=== PATIENT | female | born 1970 | race African-American/Black ===

== ENCOUNTER 2017-02-19 19:30 | Emergency (ER) | payer OTHER ==
--- NOTE | 2017-02-19 19:41 | PDOC ---
Rapid Medical Evaluation Chief Complaint: Nausea/Vomiting Time Seen by Provider: 02/19/17 19:41 Medical Evaluation: Allergies Allergy/AdvReac Type Severity Reaction Status Date / Time No Known Allergies Allergy Verified 11/28/11 12:35 Pt presents with complaint of : Vomiting x 6 days, epigastric tenderness. Now with generalized numbness and tingling. s/p cholecystectomy 10 years ago. On brief exam:VSS, crying, + upper quadrant tenderness I have ordered the following: cbc, cmp, lipase, ua, ucx, urine Pt will go to the Emergency Dept for further workup 02/19/17 19:45
[2017-02-19 19:43] VITALS: TEMP 98.8; BMI 26.9
[2017-02-19 20:32] LABS: BASOPHIL 0.4 % (0-2.0); EOSINOPHIL 0.1 % (0-4.5); MCH 30.4 pg (25.7-33.7); MCHC 34.3 g/dl (32.0-36.0); MEAN CELL VOLUME 88.6 fl (80-96); MEAN PLT VOLUME 9.3 fl (7.5-11.1); NEUTROPHILS 61.1 % (42.8-82.8); PLATELET COUNT 276 K/MM3 (134-434); RDW 14.1 % (11.6-15.6); WHITE BLOOD COUNT 12.9 K/mm3 (4.0-10.0)
[2017-02-19 20:37] LABS: URINE APPEARANCE CLOUDY; URINE BILIRUBIN NEGATIVE (NEGATIVE); URINE BLOOD NEGATIVE (NEGATIVE); URINE COLOR AMBER; URINE GLUCOSE (UA) NEGATIVE (NEGATIVE); URINE KETONE 1+ (NEGATIVE); URINE NITRITE NEGATIVE (NEGATIVE); URINE UROBILINOGEN 4.0 E.U/dl mg/dL (0.2-1.0)
[2017-02-19 20:46] LABS: URINE PROTEIN 1+ (NEGATIVE)
[2017-02-19 20:51] LABS: URINE MUCUS MANY; URINE RBC 18 /hpf (0-3); URINE WBC 81 /hpf (3-5)
[2017-02-19 20:55] LABS: ALBUMIN 4.1 g/dl (3.4-5.0); ALK PHOS 67 U/L (45-117); ANION GAP 10 (8-16); BILIRUBIN,TOTAL 2.3 mg/dL (0.2-1.0); CALCIUM 9.7 mg/dL (8.5-10.1); CO2 33 mmol/L (21-32); CREATININE 1.1 mg/dL (0.55-1.02); GLUCOSE,RANDOM 112 mg/dL (74-106); SGOT/AST 15 U/L (15-37); SGPT/ALT 29 U/L (12-78)
[2017-02-19] MEDS ORDERED: MAG HYDROX/AL HYDROX/SIMETH 30 ML UNIT-DOSE CUP PO ONE (21:49)
[2017-02-19] MEDS ORDERED: ONDANSETRON 4 MG/2 ML VIAL IVPUSH ONE (21:49)
[2017-02-19] MEDS ORDERED: LEVOFLOXACIN 750 MG IVPB 750 MG/150 ML BAG IVPB ONE ×2 (21:50→22:12)
--- NOTE | 2017-02-19 21:52 | PDOC ---
History of Present Illness - History of Present Illness Initial Comments: 02/19/17 21:52 Ms. Au is a 46 yo female w/ no pmh who presents c/o a 6 day history of nausea with vomiting. She reports that she has not been able to keep food or water down over this time period and that her vomit has consisted of whatever she has eaten. She decided to present today because she was starting to feel light headed. Also, she reports tingling of her hands for the last day and current headache. The patient denies chest pain and shortness of breath. Denies fever, chills, diarrhea and constipation. Denies dysuria, frequency, urgency and hematuria. Allergies: NKDA <Tenzin Meyer - Last Filed: 02/20/17 00:04> <Edison Johnson - Last Filed: 02/20/17 01:00> - General Chief Complaint: Nausea/Vomiting Stated Complaint: STOMACH PAIN Time Seen by Provider: 02/19/17 19:41 Past History - Past Medical History Asthma: No Cancer: No COPD: No - Surgical History Abdominal Surgery: No Appendectomy: No Cardiac Surgery: No - Suicide/Smoking/Psychosocial Hx Smoking Status: No Smoking History: Current some day smoker Have you smoked in the past 12 months: No Number of Cigarettes Smoked Daily: 5 Information on smoking cessation initiated: No Hx Alcohol Use: No Drug/Substance Use Hx: No Substance Use Type: Marijuana <Tenzin Meyer - Last Filed: 02/20/17 00:04> <Edison Johnson - Last Filed: 02/20/17 01:00> - Past Medical History Allergies/Adverse Reactions: Allergies Allergy/AdvReac Type Severity Reaction Status Date / Time No Known Allergies Allergy Verified 11/28/11 12:35 Home Medications: Ambulatory Orders Levofloxacin [Levaquin] 750 mg PO DAILY #5 tab 02/20/17 Ondansetron [Zofran Odt -] 4 mg SL BID #10 od.tablet 02/20/17 Review of Systems - Review of Systems Comments:: 02/19/17 21:56 GENERAL/CONSTITUTIONAL: No fever or chills. No weakness. HEAD, EYES, EARS, NOSE AND THROAT: No change in vision. No ear pain or discharge. No sore throat. CARDIOVASCULAR: No chest pain or shortness of breath RESPIRATORY: No cough, wheezing, or hemoptysis. GASTROINTESTINAL: Nausea with vomiting as described. No diarrhea or constipation. GENITOURINARY: No dysuria, frequency, or change in urination. MUSCULOSKELETAL: +Flank pain on left SKIN: No rash NEUROLOGIC: +Current headache with new onset bilateral finger parasthesias. No vertigo, loss of consciousness, or change in strength/sensation. ENDOCRINE: No increased thirst. No abnormal weight change HEMATOLOGIC/LYMPHATIC: No anemia, easy bleeding, or history of blood clots. ALLERGIC/IMMUNOLOGIC: No hives or skin allergy. <Tenzin Meyer - Last Filed: 02/20/17 00:04> *Physical Exam - Vital Signs Last Vital Signs Temp Pulse Resp BP Pulse Ox 98.8 F 115 H 19 117/71 100 02/19/17 19:41 02/19/17 19:41 02/19/17 19:41 02/19/17 19:41 02/19/17 19:41 - Physical Exam Comments: 02/19/17 22:02 GENERAL: Awake, alert, and fully oriented, in no acute distress HEAD: No signs of trauma, normocephalic, atraumatic EYES: PERRLA, EOMI, sclera anicteric, conjunctiva clear ENT: Auricles normal inspection, hearing grossly normal, nares patent, oropharynx clear without exudates. Moist mucosa NECK: Normal ROM, supple, no lymphadenopathy, JVD, or masses LUNGS: No distress, speaks full sentences, clear to auscultation bilaterally HEART: Regular rate and rhythm, normal S1 and S2, no murmurs, rubs or gallops, peripheral pulses normal and equal bilaterally. ABDOMEN: +Diffusely tender to palpation. CVA tenderness bilaterally. Soft, normoactive bowel sounds. No guarding, no rebound. No masses EXTREMITIES: Normal inspection, Normal range of motion, no edema. No clubbing or cyanosis. NEUROLOGICAL: Cranial nerves II through XII grossly intact. Normal speech, normal gait, no focal sensorimotor deficits SKIN: Warm, Dry, normal turgor, no rashes or lesions noted. <Tenzin Meyer - Last Filed: 02/20/17 00:04> - Vital Signs Last Vital Signs Temp Pulse Resp BP Pulse Ox 98.8 F 90 16 116/76 98 02/19/17 19:41 02/19/17 23:47 02/19/17 23:47 02/19/17 23:47 02/19/17 23:47 <Edison Johnson - Last Filed: 02/20/17 01:00> ED Treatment Course - LABORATORY CBC & Chemistry Diagram: 02/19/17 20:12 02/19/17 20:12 - ADDITIONAL ORDERS Additional order review: Laboratory Results 02/19/17 02/19/17 02/19/17 20:12 20:12 20:12 Sodium 131 L Potassium 3.0 L Chloride 88 L D Carbon Dioxide 33 H D Anion Gap 10 BUN 15 D Creatinine 1.1 H D Creat Clearance w eGFR 53.71 Random Glucose 112 H D Calcium 9.7 Total Bilirubin 2.3 H D AST 15 D ALT 29 Alkaline Phosphatase 67 D Total Protein 8.0 Albumin 4.1 Lipase 91 Urine Color Janice Urine Appearance Cloudy Urine pH 6.0 Ur Specific [place] 1.029 Urine Protein 1+ H Urine Glucose (UA) Negative Urine Ketones 1+ H Urine Blood Negative Urine Nitrite Negative Urine Bilirubin Negative Urine Urobilinogen 4.0 e.u/dl H Urine WBC (Auto) 81 Urine RBC (Auto) 18 Ur Epithelial Cells Moderate Urine Mucus Many Urine HCG, Qual Negative 02/19/17 20:12 RBC 5.54 H D MCV 88.6 MCHC 34.3 RDW 14.1 D MPV 9.3 Neutrophils % 61.1 Lymphocytes % 30.7 D Monocytes % 7.7 D Eosinophils % 0.1 Basophils % 0.4 <Tenzin Meyer - Last Filed: 02/20/17 00:04> - LABORATORY CBC & Chemistry Diagram: 02/19/17 20:12 02/19/17 20:12 - ADDITIONAL ORDERS Additional order review: Laboratory Results 02/19/17 02/19/17 02/19/17 20:12 20:12 20:12 Sodium 131 L Potassium 3.0 L Chloride 88 L D Carbon Dioxide 33 H D Anion Gap 10 BUN 15 D Creatinine 1.1 H D Creat Clearance w eGFR 53.71 Random Glucose 112 H D Calcium 9.7 Total Bilirubin 2.3 H D AST 15 D ALT 29 Alkaline Phosphatase 67 D Total Protein 8.0 Albumin 4.1 Lipase 91 Urine Color Janice Urine Appearance Cloudy Urine pH 6.0 Ur Specific [place] 1.029 Urine Protein 1+ H Urine Glucose (UA) Negative Urine Ketones 1+ H Urine Blood Negative Urine Nitrite Negative Urine Bilirubin Negative Urine Urobilinogen 4.0 e.u/dl H Urine WBC (Auto) 81 Urine RBC (Auto) 18 Ur Epithelial Cells Moderate Urine Mucus Many Urine HCG, Qual Negative 02/19/17 20:12 RBC 5.54 H D MCV 88.6 MCHC 34.3 RDW 14.1 D MPV 9.3 Neutrophils % 61.1 Lymphocytes % 30.7 D Monocytes % 7.7 D Eosinophils % 0.1 Basophils % 0.4 - Medications Given in the ED: ED Medications Discontinued Medications Generic Name Dose Route Start Last Admin Trade Name Freq PRN Reason Stop Dose Admin Al Hydroxide/Mg Hydroxide 30 ml 02/19/17 21:49 02/19/17 22:19 Mylanta Oral Suspension - PO 02/19/17 21:50 30 ml ONCE ONE Administration Levofloxacin 750 mg in 150 mls @ 100 mls/hr 02/19/17 21:50 02/19/17 22:39 Levaquin 750 Mg Premixed Ivpb - IVPB 02/19/17 23:19 100 mls/hr ONCE ONE Administration Magnesium Sulfate 2 gm 02/19/17 22:48 02/19/17 23:20 Magnesium Sulfate IVPB 02/19/17 22:49 2 gm ONCE ONE Administration Ondansetron HCl 4 mg 02/19/17 21:49 02/19/17 22:19 Zofran Injection IVPUSH 02/19/17 21:50 4 mg ONCE ONE Administration <Edison Johnson - Last Filed: 02/20/17 01:00> Medical Decision Making - Medical Decision Making 02/20/17 00:04 Patient experienced some relief from symptoms with 1L NS, zofran, and GI cocktail. After evaluation of electrolytes K noted to be low so 20 meq given. Magnesium given empirically after prolonged QT noted on EKG. Patient signed out to Dr. Johnson for further care. <Tenzin Meyer - Last Filed: 02/20/17 00:04> *DC/Admit/Observation/Transfer <Tenzin Meyer - Last Filed: 02/20/17 00:04> - Attestations Physician Attestion: 02/20/17 00:59 I, Dr. Edison Johnson MD, attest that this document has been prepared under my direction and personally reviewed by me in its entirety. I further attest, that it accurately reflects all work, treatment, procedures and medical decision -making performed by me. 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 Take the antibiotics as prescribed to treat your kidney infection. If you experience worsening pain, fevers, nausea, vomiting, or any other concerning symptoms, return to the ER immediately. Otherwise, follow up with your primary doctor within 1 week for a re-evaluation. - Post Discharge Activity Forms/Work/School Notes: Back to Work
[2017-02-19] MEDS ORDERED: FAMOTIDINE IV 20 MG/12 ML VIAL IVPUSH SCH (22:00)
[2017-02-19] MEDS ORDERED: SODIUM CHLORIDE 0.9%/KCL 20 MEQ/1,000 ML INFUS.BAG IV SCH (22:00)
[2017-02-19] MEDS ORDERED: ONDANSETRON 4 MG/2 ML VIAL ONE (22:12)
[2017-02-19] MEDS ORDERED: MAG HYDROX/AL HYDROX/SIMETH 30 ML UNIT-DOSE CUP ONE (22:12)
[2017-02-19] MEDS ORDERED: FAMOTIDINE 20 MG/50 ML IVPB 20 MG/50 ML MG IVPB ONE (22:13)
[2017-02-19] MEDS ORDERED: MAGNESIUM SULF 50% (8.12 MEQ/2 ML-1 GM VIAL) IVPB ONE (22:48)
[2017-02-19] MEDS ORDERED: MAGNESIUM SULF 50% (8.12 MEQ/2 ML-1 GM VIAL) ONE (22:58)
--- NOTE | 2017-02-19 23:38 | PDOC ---
Attending Attestation - Resident Resident Name: Tenzin Meyer - ED Attending Attestation I have performed the following: I have examined & evaluated the patient, The case was reviewed & discussed with the resident, I agree w/resident's findings & plan, Exceptions are as noted - HPI HPI: 02/19/17 23:33 46 F with no PMH presents to ER with 5 days of nausea and vomiting. Pt states that she has had difficulty keeping anything down due to severe nausea. Denies any focal abdominal pain but complains of diffuse cramps that started after vomiting. Denies F/C. Denies diarrhea. Pt has h/o UTI but denies any dysuria at this time. Pt denies surgical history. - Physicial Exam PE: 02/19/17 23:34 "GENERAL: Awake, alert, and fully oriented, in no acute distress HEAD: No signs of trauma EYES: PERRLA, EOMI, sclera anicteric, conjunctiva clear ENT: Auricles normal inspection, hearing grossly normal, nares patent, oropharynx clear without exudates. Moist mucosa NECK: Nontender, no stepoffs, Normal ROM, supple, no lymphadenopathy, JVD, or masses LUNGS: Breath sounds equal, clear to auscultation bilaterally. No wheezes, and no crackles HEART: Regular rate and rhythm, normal S1 and S2, no murmurs, rubs or gallops ABDOMEN: Soft, nontender, normoactive bowel sounds. No guarding, no rebound. No masses, Negative graves's EXTREMITIES: Normal range of motion, no edema. No clubbing or cyanosis. No cords, erythema, or tenderness NEUROLOGICAL: Cranial nerves II through XII intact. 5/5 strength and sensation in all extremities, Normal speech, normal gait SKIN: Warm, Dry, normal turgor, no rashes or lesions noted. " - Medical Decision Making 02/19/17 23:37 46 F with N/V. No focal abdominal tenderness on exam. + L CVAT, concerning for pyelo vs stone. - Labs, UA, UCx - IVF, zofran, pepcid - Reassess 02/19/17 23:38 EKG with QTC >600. Will hold on further antiemetics. Magnesium 2mg IV administered. 02/20/17 00:57 CBC,CMP WBC 12.9 K/mm3 (4.0-10.0) H D 02/19/17 20:12 RBC 5.54 M/mm3 (3.60-5.2) H D 02/19/17 20:12 Hgb 16.9 GM/dL (10.7-15.3) H D 02/19/17 20:12 Hct 49.1 % (32.4-45.2) H D 02/19/17 20:12 MCV 88.6 fl (80-96) 02/19/17 20:12 MCH 30.4 pg (25.7-33.7) 02/19/17 20:12 MCHC 34.3 g/dl (32.0-36.0) 02/19/17 20:12 RDW 14.1 % (11.6-15.6) D 02/19/17 20:12 Plt Count 276 K/MM3 (134-434) 02/19/17 20:12 MPV 9.3 fl (7.5-11.1) 02/19/17 20:12 Neutrophils % 61.1 % (42.8-82.8) 02/19/17 20:12 Lymphocytes % 30.7 % (8-40) D 02/19/17 20:12 Monocytes % 7.7 % (3.8-10.2) D 02/19/17 20:12 Eosinophils % 0.1 % (0-4.5) 02/19/17 20:12 Basophils % 0.4 % (0-2.0) 02/19/17 20:12 Sodium 131 mmol/L (136-145) L 02/19/17 20:12 Potassium 3.0 mmol/L (3.5-5.1) L 02/19/17 20:12 Chloride 88 mmol/L (98-107) L D 02/19/17 20:12 Carbon Dioxide 33 mmol/L (21-32) H D 02/19/17 20:12 Anion Gap 10 (8-16) 02/19/17 20:12 BUN 15 mg/dL (7-18) D 02/19/17 20:12 Creatinine 1.1 mg/dL (0.55-1.02) H D 02/19/17 20:12 Creat Clearance w eGFR 53.71 (>60) 02/19/17 20:12 Random Glucose 112 mg/dL (74-106) H D 02/19/17 20:12 Calcium 9.7 mg/dL (8.5-10.1) 02/19/17 20:12 Total Bilirubin 2.3 mg/dL (0.2-1.0) H D 02/19/17 20:12 AST 15 U/L (15-37) D 02/19/17 20:12 ALT 29 U/L (12-78) 02/19/17 20:12 Alkaline Phosphatase 67 U/L (45-117) D 02/19/17 20:12 Total Protein 8.0 g/dl (6.4-8.2) 02/19/17 20:12 Albumin 4.1 g/dl (3.4-5.0) 02/19/17 20:12 Lipase 91 U/L (73-393) 02/19/17 20:12 UA consistent with UTI Pt reassessed s/p meds and IVF. Now significantly improved. Abdomen benign. Pt tolerating PO without N/V. Repeat EKG with QTc 473. Intervals wnl. Pt well appearing, tolerating PO. Exam and vitals wnl. Clinically stable for DC home with course of Levaquin for pyelo.
[2017-02-19 23:48] VITALS: BP 116/76; PULSE 90
--- NOTE | 2017-02-20 10:04 | EKG ---
Test Reason : Blood Pressure : / mmHG Vent. Rate : 077 BPM Atrial Rate : 077 BPM P-R Int : 134 ms QRS Dur : 086 ms QT Int : 418 ms P-R-T Axes : 075 031 080 degrees QTc Int : 473 ms NORMAL SINUS RHYTHM POSSIBLE LEFT ATRIAL ENLARGEMENT NONSPECIFIC T WAVE ABNORMALITY PROLONGED QT ABNORMAL ECG WHEN COMPARED WITH ECG OF 19-FEB-2017 22:40, NONSPECIFIC T WAVE ABNORMALITY NOW EVIDENT IN LATERAL LEADS QT HAS SHORTENED Confirmed by NASIR JAIN MD ([id number]) on 02/20/2017 10:03:40 AM Referred By: Confirmed By:NASIR JAIN MD
--- NOTE | 2017-02-20 10:04 | EKG ---
Test Reason : Blood Pressure : / mmHG Vent. Rate : 063 BPM Atrial Rate : 063 BPM P-R Int : 132 ms QRS Dur : 090 ms QT Int : 590 ms P-R-T Axes : 072 021 078 degrees QTc Int : 603 ms NORMAL SINUS RHYTHM POSSIBLE LEFT ATRIAL ENLARGEMENT PROLONGED QT ABNORMAL ECG WHEN COMPARED WITH ECG OF 28-NOV-2011 12:41, QT HAS LENGTHENED Confirmed by NASIR JAIN MD ([id number]) on 02/20/2017 10:04:22 AM Referred By: Confirmed By:NASIR JAIN MD
[2017-02-20 12:14] LABS: URINE LEUK ESTERASE 1+ (NEGATIVE)
== END 2017-02-20 01:15 | disposition home or self-care (01) ==
LOC: JER 19:30
PROC: 3E0333Z Introduction of Anti-inflammatory into Peripheral Vein, Percutaneous Approach (ICD-10-PCS; principal; 2017-02-19)
PROC: 3E03329 Introduction of Other Anti-infective into Peripheral Vein, Percutaneous Approach (ICD-10-PCS; 2017-02-19)
PROC: 3E033GC Introduction of Other Therapeutic Substance into Peripheral Vein, Percutaneous Approach (ICD-10-PCS; 2017-02-19)
PROC: 3E033GC Introduction of Other Therapeutic Substance into Peripheral Vein, Percutaneous Approach (ICD-10-PCS; 2017-02-19)
DX: N12 Tubulo-interstitial nephritis, not specified as acute or chronic (principal); E87.6 Hypokalemia; R10.32 Left lower quadrant pain; F17.210 Nicotine dependence, cigarettes, uncomplicated
CPT/HCPCS: 36415; 80053; 81003; 81015; 83690; 84703; 85025; 93005; 93010; 99283-25